=== PATIENT | female | born 1975 | race Caucasian/White ===

== ENCOUNTER 2017-04-22 14:28 | Emergency (ER) | payer MEDICAID ==
[~2017-04-22] VITALS: Ht 165.1 cm; Wt 122.9 kg
[2017-04-22 14:28] VITALS: BP_SYST 160
[~2017-04-22 14:28] MED LIST: LIPITOR; TOPAMAX
[2017-04-22] MEDS ORDERED: LIDOCAINE 1% 10 MG/ML, 20 ML MDV IJ ONE (15:00)
[2017-04-22] MEDS ORDERED: BACITRACIN 1 GM OINT TP ONE (15:00)
[2017-04-22 15:28] VITALS: BP_SYST 137
== END 2017-04-22 15:32 | disposition home or self-care (01) ==
LOC: SED 14:28
DX: S61.210A Laceration without foreign body of right index finger without damage to nail, initial encounter (principal); F41.9 Anxiety disorder, unspecified; E78.00 Pure hypercholesterolemia, unspecified; K21.9 Gastro-esophageal reflux disease without esophagitis; Z98.51 Tubal ligation status; W25.XXXA Contact with sharp glass, initial encounter; Y93.G1 Activity, food preparation and clean up; Y92.89 Other specified places as the place of occurrence of the external cause; Y99.8 Other external cause status
CPT/HCPCS: 12001; 99283; J2001